=== PATIENT | female | born 1995 | race Caucasian/White ===

== ENCOUNTER 2020-12-24 17:17 | Emergency (ER) | payer MEDICAID ==
[~2020-12-24] VITALS: Ht 160 cm; Wt 77.3 kg
[~2020-12-24 17:17] MED LIST: MESA1.2T PO; STOOL SOFTENER
[2020-12-24] MEDS ORDERED: SODIUM CHLORIDE 0.9% 250 ML IRRIG SOLUTION BOTTLE IRRIG ONE (17:45)
[2020-12-24] MEDS ORDERED: PERTUSS(ACELL),DIPH,TET VAC/PF 0.5 ML SYRINGE IM ONE (17:45)
[2020-12-24] MEDS ORDERED: HYDROCODONE/ACETAMINOPHEN 5-325 MG TABLET PO ONE (17:45)
[2020-12-24 20:19] VITALS: BP 140/79
== END 2020-12-24 21:10 | disposition home or self-care (01) ==
LOC: EMS 17:17
DX: S61.211A Laceration without foreign body of left index finger without damage to nail, initial encounter (principal); F17.210 Nicotine dependence, cigarettes, uncomplicated; W26.8XXA Contact with other sharp object(s), not elsewhere classified, initial encounter; Y93.89 Activity, other specified; Y92.89 Other specified places as the place of occurrence of the external cause; Y99.8 Other external cause status
CPT/HCPCS: 12001; 90471; 90715; 99283